=== PATIENT | male | born 1980 | race Two or more races ===

== ENCOUNTER 2024-01-03 23:30 | Inpatient (IN) | payer OTHER ==
[~2024-01-03] VITALS: Ht 175.3 cm; Wt 73.6 kg
[2024-01-04] MEDS ORDERED: ONDANSETRON HCL 4 MG/2 ML VIAL IVP PRN (00:45)
[2024-01-04 01:00] LABS: BASOPHILS % (AUTO) 0.3 % (0.0-2.0); HEMATOCRIT 40.6 % (41-53); HEMOGLOBIN 13.9 g/dL (13.5-17.5); LYMPHOCYTES # (AUTO) 3.9 K/uL (1.0-4.8); LYMPHOCYTES % (AUTO) 44.3 % (22.0-44.0); MEAN CORPUSCULAR HEMOGLOBIN 32.4 pg (26.0-34.0); MEAN CORPUSCULAR HGB CONC 34.2 G/dL (31.0-37.0); MEAN CORPUSCULAR VOLUME 95 fL (80-100); MONOCYTES # (AUTO) 0.9 K/uL (0.1-1.0); MONOCYTES % (AUTO) 9.8 % (2.0-9.0); NEUTROPHILS % (AUTO) 44.6 % (40.0-70.0); PLATELET COUNT (AUTO) 267 K/uL (150-450); RED BLOOD CELL COUNT(AUTO) 4.29 MIL/uL (4.50-5.90); RED CELL DISTRIBUTION WIDTH 12.7 % (11.5-14.5); WHITE BLOOD COUNT (AUTO) 8.9 K/uL (4.5-11.0)
[2024-01-04 01:14] LABS: ALKALINE PHOSPHATASE 71 U/L (46-116); ASPARTATE AMINOTRANSFERASE 23 U/L (15-37); BILIRUBIN,TOTAL 0.2 mg/dL (0.1-1.0); TOTAL PROTEIN, SERUM 7.2 g/dL (6.4-8.2)
[2024-01-04 01:20] LABS: ALCOHOL, BLOOD (SERUM) < 3 mg/dL (0-10)
[2024-01-04 01:21] LABS: ANION GAP 7 mmol/L (8-16); CALCIUM, TOTAL 9.3 mg/dL (8.8-10.5); CARBON DIOXIDE 29 mmol/L (22-29); CHLORIDE 104 mmol/L (98-107); CREATININE 1.11 mg/dL (0.60-1.30); GLOMERULAR FILTR. RATE CALC > 60 mL/min (>60); GLUCOSE,RANDOM 109 mg/dL (70-110); POTASSIUM 4.8 mmol/L (3.5-5.1); SODIUM SERUM 140 mmol/L (136-145); UREA NITROGEN, BLOOD 27 mg/dL (7-18)
[2024-01-04 01:33] LABS: ALANINE AMINOTRANSFERASE 27 U/L (12-78); ALBUMIN 4.1 g/dL (3.4-5.0)
[2024-01-04 03:05] LABS: COVID AG,FIA SOURCE NASAL SWAB
[2024-01-04 03:10] LABS: SARS-COV2 (COVID) ANTIGEN,FIA Negative (Negative)
[2024-01-04] MEDS: HEPARIN SODIUM,PORCINE 5,000 UNITS/ML VIAL SQ SCH (08:00)
[2024-01-04] MEDS: DOCUSATE SODIUM 100 MG CAPSULE PO SCH (09:00)
[2024-01-04 10:01] LABS: PH,URINE DRUG SCREEN 6.5 (5.0-8.0)
[2024-01-04 10:08] LABS: ALCOHOL, URINE DRUG SCREEN NEGATIVE (NEGATIVE); AMPHET/METH SCREEN,URINE NEGATIVE (NEGATIVE); BARBITURATE SCREEN, URINE NEGATIVE (NEGATIVE); BENZODIAZEPINES SCREEN,URINE NEGATIVE (NEGATIVE); CANNABINOID SCREEN,URINE NEGATIVE (NEGATIVE); COCAINE SCREEN,URINE NEGATIVE (NEGATIVE); METHADONE SCREEN, URINE NEGATIVE (NEGATIVE); OPIATE SCREEN,URINE NEGATIVE (NEGATIVE); PHENCYCLIDINE SCREEN,URINE NEGATIVE (NEGATIVE)
[2024-01-04] MEDS: ACETAMINOPHEN 325 MG TABLET PO PRN (14:01)
[2024-01-04 17:27] VITALS: BP 108/60; PULSE 45; RESP 18; TEMP 97.7
[2024-01-04 19:39] VITALS: BP 106/59; PULSE 50; RESP 18; TEMP 98.2
[2024-01-05 05:17] VITALS: BP 107/58; PULSE 49; RESP 18; TEMP 97.8
[2024-01-05 08:06] LABS: BASOPHILS % (AUTO) 0.5 % (0.0-2.0); HEMATOCRIT 41.3 % (41-53); HEMOGLOBIN 14.3 g/dL (13.5-17.5); LYMPHOCYTES % (AUTO) 47.3 % (22.0-44.0); MEAN CORPUSCULAR HEMOGLOBIN 32.5 pg (26.0-34.0); MEAN CORPUSCULAR HGB CONC 34.5 G/dL (31.0-37.0); MEAN CORPUSCULAR VOLUME 94 fL (80-100); MONOCYTES # (AUTO) 0.8 K/uL (0.1-1.0); MONOCYTES % (AUTO) 12.9 % (2.0-9.0); NEUTROPHILS # (AUTO) 2.3 K/uL (1.8-7.7); NEUTROPHILS % (AUTO) 37.3 % (40.0-70.0); PLATELET COUNT (AUTO) 223 K/uL (150-450); RED CELL DISTRIBUTION WIDTH 12.7 % (11.5-14.5); WHITE BLOOD COUNT (AUTO) 6.3 K/uL (4.5-11.0)
[2024-01-05 08:17] LABS: ANION GAP 5 mmol/L (8-16); CALCIUM, TOTAL 8.7 mg/dL (8.8-10.5); CARBON DIOXIDE 30 mmol/L (22-29); CHLORIDE 104 mmol/L (98-107); CREATININE 1.02 mg/dL (0.60-1.30); GLOMERULAR FILTR. RATE CALC > 60 mL/min (>60); GLUCOSE,RANDOM 101 mg/dL (70-110); POTASSIUM 4.9 mmol/L (3.5-5.1); SODIUM SERUM 139 mmol/L (136-145); UREA NITROGEN, BLOOD 21 mg/dL (7-18)
[2024-01-05 08:56] VITALS: BP 108/59; PULSE 52; RESP 18; TEMP 98
[2024-01-05 19:13] VITALS: BP 114/75; PULSE 60; RESP 18; TEMP 98
[2024-01-06 05:15] VITALS: BP 105/71; PULSE 46; RESP 18; TEMP 97.5
[2024-01-06 08:54] VITALS: BP 101/65; PULSE 50; RESP 19; TEMP 98.7
[2024-01-06] MEDS: CITALOPRAM HYDROBROMIDE 20 MG TABLET PO SCH (16:17)
[2024-01-06 20:04] VITALS: BP 129/68; PULSE 64; RESP 18; TEMP 98
[2024-01-07 04:41] VITALS: BP 123/78; PULSE 55; RESP 18; TEMP 97.8
[2024-01-07 08:07] VITALS: BP 103/65; PULSE 55; RESP 18; TEMP 97.6
[2024-01-07] MEDS ORDERED: CITA-144 PO (16:51)
[2024-01-07 20:30] VITALS: BP 140/78; PULSE 64; RESP 20; TEMP 98.3
== END 2024-01-07 23:30 | DRG 885 ==
LOC: EMS 23:36 → AHU 01-04 00:42 → 6S 01-04 16:26
PROVIDERS: ADMIT Internal Medicine; ATTEND Internal Medicine
PROC: GZ56ZZZ Individual Psychotherapy, Supportive (ICD-10-PCS; principal; 2024-01-06)
DX: F33.2 Major depressive disorder, recurrent severe without psychotic features (principal); R45.851 Suicidal ideations; M25.551 Pain in right hip; M79.18 Myalgia, other site; Z20.822 Contact with and (suspected) exposure to COVID-19; Z60.8 Other problems related to social environment; M54.31 Sciatica, right side; M25.512 Pain in left shoulder
CPT/HCPCS: 72170; 80048; 80053; 80307; 83735; 85025; 99285; G0480; J1644

== ENCOUNTER 2024-02-10 13:57 | Inpatient (IN) | payer OTHER ==
[~2024-02-10] VITALS: Ht 177.8 cm; Wt 73.0 kg
[~2024-02-10 13:57] MED LIST: CITA-144 PO
[2024-02-10 15:08] LABS: ALCOHOL, URINE DRUG SCREEN NEGATIVE (NEGATIVE); AMPHET/METH SCREEN,URINE NEGATIVE (NEGATIVE); BARBITURATE SCREEN, URINE NEGATIVE (NEGATIVE); BENZODIAZEPINES SCREEN,URINE NEGATIVE (NEGATIVE); CANNABINOID SCREEN,URINE NEGATIVE (NEGATIVE); COCAINE SCREEN,URINE NEGATIVE (NEGATIVE); METHADONE SCREEN, URINE NEGATIVE (NEGATIVE); OPIATE SCREEN,URINE NEGATIVE (NEGATIVE); PHENCYCLIDINE SCREEN,URINE NEGATIVE (NEGATIVE)
[2024-02-10] MEDS ORDERED: MAGNESIUM HYDROXIDE SUSPENSION 30 ML UDCUP PO PRN (20:30)
[2024-02-10] MEDS ORDERED: IPRATROPIUM BROMIDE 0.5 MG/2.5 ML NEB SOLUTION NEB PRN (20:30)
[2024-02-10] MEDS ORDERED: ALBUTEROL SULFATE 2.5 MG/0.5 ML NEB SOLUTION NEB PRN (20:30)
[2024-02-10] MEDS ORDERED: ZOLPIDEM TARTRATE 5 MG TABLET PO PRN (20:30)
[2024-02-10] MEDS ORDERED: KETOROLAC TROMETHAMINE 15 MG/ML VIAL IVP PRN (20:30)
[2024-02-10] MEDS ORDERED: BISACODYL 10 MG RECTAL RECTAL SUPPOSITORY PR PRN (20:30)
[2024-02-10] MEDS ORDERED: ONDANSETRON HCL 4 MG/2 ML VIAL IVP PRN (20:30)
[2024-02-10 20:49] LABS: BASOPHILS % (AUTO) 0.6 % (0.0-2.0); EOSINOPHILS % (AUTO) 0.4 % (1.0-6.0); HEMATOCRIT 39.6 % (41-53); HEMOGLOBIN 13.8 g/dL (13.5-17.5); LYMPHOCYTES # (AUTO) 3.7 K/uL (1.0-4.8); LYMPHOCYTES % (AUTO) 39.8 % (22.0-44.0); MEAN CORPUSCULAR HEMOGLOBIN 32.3 pg (26.0-34.0); MEAN CORPUSCULAR HGB CONC 34.7 G/dL (31.0-37.0); MEAN CORPUSCULAR VOLUME 93 fL (80-100); MONOCYTES # (AUTO) 1.1 K/uL (0.1-1.0); MONOCYTES % (AUTO) 12.2 % (2.0-9.0); NEUTROPHILS # (AUTO) 4.4 K/uL (1.8-7.7); PLATELET COUNT (AUTO) 272 K/uL (150-450); RED BLOOD CELL COUNT(AUTO) 4.26 MIL/uL (4.50-5.90); RED CELL DISTRIBUTION WIDTH 12.3 % (11.5-14.5); WHITE BLOOD COUNT (AUTO) 9.3 K/uL (4.5-11.0)
[2024-02-10 20:58] LABS: ANION GAP 3 mmol/L (8-16); CALCIUM, TOTAL 9.4 mg/dL (8.8-10.5); CARBON DIOXIDE 36 mmol/L (22-29); CHLORIDE 104 mmol/L (98-107); CREATININE 0.99 mg/dL (0.60-1.30); GLOMERULAR FILTR. RATE CALC > 60 mL/min (>60); GLUCOSE,RANDOM 106 mg/dL (70-110); POTASSIUM 4.9 mmol/L (3.5-5.1); SODIUM SERUM 143 mmol/L (136-145); UREA NITROGEN, BLOOD 19 mg/dL (7-18)
[2024-02-10 21:02] LABS: ALCOHOL, BLOOD (SERUM) < 3 mg/dL (0-10)
[2024-02-10 21:04] LABS: ALANINE AMINOTRANSFERASE 57 U/L (12-78); ALBUMIN 3.8 g/dL (3.4-5.0); ALKALINE PHOSPHATASE 61 U/L (46-116); ASPARTATE AMINOTRANSFERASE 36 U/L (15-37); BILIRUBIN,TOTAL 0.3 mg/dL (0.1-1.0); TOTAL PROTEIN, SERUM 6.9 g/dL (6.4-8.2)
[2024-02-10 21:20] VITALS: BP 123/72; PULSE 60; RESP 18; TEMP 97.9
[2024-02-10] MEDS: HEPARIN SODIUM,PORCINE 5,000 UNITS/ML VIAL SQ SCH (23:35)
[2024-02-10] MEDS: ACETAMINOPHEN 325 MG TABLET PO PRN (23:36)
[2024-02-11] MEDS: PANTOPRAZOLE SODIUM 40 MG DR TABLET PO SCH (08:36)
[2024-02-11] MEDS: IBUPROFEN 400 MG TABLET PO PRN (16:48)
[2024-02-11 20:07] VITALS: BP 105/72; PULSE 54; RESP 18; TEMP 97.7
[2024-02-12 05:29] VITALS: BP 106/65; PULSE 59; RESP 18; TEMP 98
[2024-02-12 08:34] VITALS: BP 104/66; PULSE 59; RESP 18; TEMP 97.6
== END 2024-02-12 18:07 | DRG 556 ==
LOC: EMS 13:57 → EDH 17:14 → 6S 21:10
PROVIDERS: ADMIT Hospitalist; ATTEND Hospitalist
DX: M25.512 Pain in left shoulder (principal); F33.1 Major depressive disorder, recurrent, moderate; R45.851 Suicidal ideations; Z60.8 Other problems related to social environment; F20.9 Schizophrenia, unspecified; M25.572 Pain in left ankle and joints of left foot; Z91.010 Allergy to peanuts; Z91.51 Personal history of suicidal behavior; Z91.011 Allergy to milk products
CPT/HCPCS: 73200; 80053; 80307; 85025; G0480; J1644

== ENCOUNTER 2024-10-15 14:47 | Inpatient (IN) | payer OTHER ==
[~2024-10-15] VITALS: Ht 177.8 cm; Wt 88.0 kg
[2024-10-15] MEDS: ACETAMINOPHEN 500 MG TABLET PO ONE (15:31)
[2024-10-15] MEDS: IBUPROFEN 400 MG TABLET PO ONE (15:35)
[2024-10-15 19:27] LABS: BASOPHILS % (AUTO) 0.5 % (0.0-2.0); EOSINOPHILS % (AUTO) 0.9 % (1.0-6.0); HEMATOCRIT 41.1 % (41-53); HEMOGLOBIN 14.1 g/dL (13.5-17.5); LYMPHOCYTES # (AUTO) 3.4 K/uL (1.0-4.8); LYMPHOCYTES % (AUTO) 40.3 % (22.0-44.0); MEAN CORPUSCULAR HEMOGLOBIN 31.8 pg (26.0-34.0); MEAN CORPUSCULAR HGB CONC 34.2 G/dL (31.0-37.0); MEAN CORPUSCULAR VOLUME 93 fL (80-100); MONOCYTES # (AUTO) 0.9 K/uL (0.1-1.0); MONOCYTES % (AUTO) 11.4 % (2.0-9.0); NEUTROPHILS # (AUTO) 3.9 K/uL (1.8-7.7); NEUTROPHILS % (AUTO) 46.9 % (40.0-70.0); PLATELET COUNT (AUTO) 225 K/uL (150-450); RED BLOOD CELL COUNT(AUTO) 4.42 MIL/uL (4.50-5.90); RED CELL DISTRIBUTION WIDTH 13.1 % (11.5-14.5); WHITE BLOOD COUNT (AUTO) 8.3 K/uL (4.5-11.0)
[2024-10-15 19:30] LABS: ANION GAP 7 mmol/L (8-16); CALCIUM, TOTAL 8.5 mg/dL (8.8-10.5); CARBON DIOXIDE 29 mmol/L (22-29); CHLORIDE 106 mmol/L (98-107); CREATININE 0.98 mg/dL (0.60-1.30); GLOMERULAR FILTR. RATE CALC > 60 mL/min (>60); GLUCOSE,RANDOM 98 mg/dL (70-110); POTASSIUM 4.4 mmol/L (3.5-5.1); SODIUM SERUM 142 mmol/L (136-145); UREA NITROGEN, BLOOD 21 mg/dL (7-18)
[2024-10-15 19:38] LABS: ALCOHOL, BLOOD (SERUM) < 3 mg/dL (0-10)
[2024-10-15] MEDS ORDERED: MAGNESIUM HYDROXIDE SUSPENSION 30 ML UDCUP PO PRN (20:45)
[2024-10-15] MEDS ORDERED: ONDANSETRON HCL 4 MG/2 ML VIAL IVP PRN (20:45)
[2024-10-15] MEDS ORDERED: BISACODYL 10 MG RECTAL RECTAL SUPPOSITORY PR PRN (20:45)
[2024-10-15] MEDS: DOCUSATE SODIUM 100 MG CAPSULE PO SCH (21:00)
[2024-10-15 23:00] VITALS: BP 126/76; PULSE 66; RESP 16; TEMP 98.3; O2SAT 96
[2024-10-16] MEDS: HEPARIN SODIUM,PORCINE 5,000 UNITS/ML VIAL SQ SCH (00:22)
[2024-10-16] MEDS: ACETAMINOPHEN 325 MG TABLET PO PRN (00:31)
[2024-10-16 08:11] VITALS: BP 125/80; PULSE 63; RESP 18; TEMP 97.9; O2SAT 97
[2024-10-16] MEDS: PANTOPRAZOLE SODIUM 40 MG DR TABLET PO SCH (08:43)
[2024-10-16] MEDS: HydrOXYzine PAMOATE 50 MG CAPSULE PO SCH (10:00)
[2024-10-16] MEDS: CITALOPRAM HYDROBROMIDE 10 MG TABLET PO SCH (10:00)
[2024-10-16 19:19] VITALS: BP 132/86; PULSE 58; RESP 18; TEMP 98.1; O2SAT 94
[2024-10-16 19:47] LABS: APPEARANCE,URINE CLEAR (CLEAR); BILIRUBIN,URINE NEGATIVE (NEGATIVE); COLOR,URINE COLORLESS (YELLOW); GLUCOSE, URINE (UA) NEGATIVE (NEGATIVE); KETONES,URINE NEGATIVE (NEGATIVE); LEUKOCYTE ESTERASE ,URINE NEGATIVE (NEGATIVE); NITRATE,URINE NEGATIVE (NEGATIVE); OCCULT BLOOD,URINE NEGATIVE (NEGATIVE); PH,URINE 5.5 (5.0-8.0); PH,URINE DRUG SCREEN 5.5 (5.0-8.0); PROTEIN,URINE NEGATIVE (NEGATIVE); SPECIFIC GRAVITIY, URINE 1.011 (1.003-1.030); UROBILINOGEN,URINE <=1.0 mg/dL (<=1.0)
[2024-10-16 19:55] LABS: ALCOHOL, URINE DRUG SCREEN NEGATIVE (NEGATIVE); AMPHET/METH SCREEN,URINE NEGATIVE (NEGATIVE); BARBITURATE SCREEN, URINE NEGATIVE (NEGATIVE); BENZODIAZEPINES SCREEN,URINE NEGATIVE (NEGATIVE); CANNABINOID SCREEN,URINE NEGATIVE (NEGATIVE); COCAINE SCREEN,URINE NEGATIVE (NEGATIVE); METHADONE SCREEN, URINE NEGATIVE (NEGATIVE); OPIATE SCREEN,URINE NEGATIVE (NEGATIVE); PHENCYCLIDINE SCREEN,URINE NEGATIVE (NEGATIVE)
[2024-10-16] MEDS: ZOLPIDEM TARTRATE 5 MG TABLET PO PRN (20:01)
[2024-10-16 20:17] LABS: RBC,URINE 0-2 /HPF (0-2)
[2024-10-16 20:18] LABS: BACTERIA,URINE Rare /HPF (None Seen); SQUAMOUS EPITHELIAL CELL,UR Rare /LPF (None Seen); WBC,URINE 0-2 /HPF (0-5)
[2024-10-17 07:57] VITALS: BP 120/81; PULSE 62; RESP 18; TEMP 98.3; O2SAT 99
[2024-10-17] MEDS: BuPROPion HCL XL 150 MG ER TABLET PO SCH (10:49)
[2024-10-17 19:59] VITALS: BP 137/91; PULSE 69; RESP 18; TEMP 98.3; O2SAT 98
[2024-10-17] MEDS: OLANZapine 5 MG TABLET PO SCH (20:00)
[2024-10-18 08:25] VITALS: BP 123/81; PULSE 67; RESP 19; TEMP 97.6; O2SAT 99
[2024-10-18 17:25] VITALS: BP 119/70; PULSE 74; RESP 18; TEMP 98; O2SAT 100
[2024-10-18 20:00] VITALS: BP 104/71; PULSE 64; RESP 20; TEMP 98.2; O2SAT 95
[2024-10-19 04:00] VITALS: BP 122/75; PULSE 65; RESP 18; TEMP 97.8; O2SAT 97
[2024-10-19] MEDS: OLANZapine 5 MG TABLET PO SCH (09:09)
[2024-10-19] MEDS ORDERED: BUPR-514 PO (11:36)
[2024-10-19] MEDS ORDERED: CITA10TA99 PO (11:37)
[2024-10-19] MEDS ORDERED: HYDR50CA7 PO (11:37)
[2024-10-19] MEDS ORDERED: PANT-31 PO (11:38)
[2024-10-19] MEDS ORDERED: OLAN5TAB52 PO (11:38)
== END 2024-10-19 18:10 | DRG 885 ==
LOC: EMS 14:49 → EDH 20:37 → 6S 22:44
PROVIDERS: ADMIT Internal Medicine; ATTEND Internal Medicine
PROC: GZHZZZZ Group Psychotherapy (ICD-10-PCS; principal; 2024-10-17)
PROC: GZ52ZZZ Individual Psychotherapy, Cognitive (ICD-10-PCS; 2024-10-17)
PROC: GZ56ZZZ Individual Psychotherapy, Supportive (ICD-10-PCS; 2024-10-17)
DX: F33.2 Major depressive disorder, recurrent severe without psychotic features (principal); F20.9 Schizophrenia, unspecified; I10 Essential (primary) hypertension; F41.9 Anxiety disorder, unspecified; F90.9 Attention-deficit hyperactivity disorder, unspecified type; G47.00 Insomnia, unspecified; Z53.20 Procedure and treatment not carried out because of patient's decision for unspecified reasons; E73.9 Lactose intolerance, unspecified; Z91.010 Allergy to peanuts; Z79.899 Other long term (current) drug therapy
CPT/HCPCS: 80048; 80307; 81001; 85025; 99285; G0480; J1644